=== PATIENT | female | born 1945 | race Caucasian/White ===

== ENCOUNTER → 2021-03-24 | Outpatient (CLI) | payer MEDICARE | END | disposition home or self-care (01) | LOC: CFH 10:50 | PROVIDERS: ATTEND Registered Nurse | DX: J98.4 Other disorders of lung (principal); J47.9 Bronchiectasis, uncomplicated; R06.00 Dyspnea, unspecified; Z57.39 Occupational exposure to other air contaminants | CPT/HCPCS: 71250 ==